=== PATIENT | male | born 1965 | race Caucasian/White ===

== ENCOUNTER 2021-12-28 10:19 | Inpatient (IN) | payer OTHER ==
[~2021-12-28] VITALS: Ht 172.7 cm; Wt 125.6 kg
[~2021-12-28 10:19] MED LIST: ADVIL200 MG PO; ALBUTEROL2.5 MG/3 M INH; COMBIVENT RESPIM4 GM INH; NORCO 5-325 TA1 EACH PO; PREDNISONE20 MG PO
--- NOTE | 2021-12-28 21:01 | EKG ---
[facility] [address] [facility] [place] [address] Signed Normal sinus rhythm Possible Anterior infarct , age undetermined Abnormal ECG When compared with ECG of 16-JUL-2016 12:24, Nonspecific T wave abnormality no longer evident in Lateral leads Confirmed by VENESSA ROPER MD ([id number]) on 12/28/2021 9:00:53 PM Electronically Signed By: VENESSA ROPER MD 12/28/212100 PATIENT NAME: MICHAELPASTOR JAE Electrocardiogram DATE OF : 65 PHYSICIAN: VENESSA ROPER MD REPORT #: [id number] REPORT IS CONFIDENTIAL AND NOT TO BE RELEASED WITHOUT AUTHORIZATION
[2021-12-30] MEDS ORDERED: ALBUTEROL2.5 MG/3 M INH (18:26)
== END 2021-12-30 19:15 | disposition left against medical advice (07) | DRG 189 ==
LOC: ED 10:19 → CCU 15:40
PROVIDERS: ADMIT Internal Medicine; ATTEND Internal Medicine
PROC: 5A09357 Assistance with Respiratory Ventilation, Less than 24 Consecutive Hours, Continuous Positive Airway Pressure (ICD-10-PCS; principal; 2021-12-28)
DX: J96.01 Acute respiratory failure with hypoxia (principal); G93.41 Metabolic encephalopathy; I50.23 Acute on chronic systolic (congestive) heart failure; J44.1 Chronic obstructive pulmonary disease with (acute) exacerbation; I16.1 Hypertensive emergency; N17.9 Acute kidney failure, unspecified; I16.0 Hypertensive urgency; J96.02 Acute respiratory failure with hypercapnia; I11.0 Hypertensive heart disease with heart failure; T43.625A Adverse effect of amphetamines, initial encounter; F12.90 Cannabis use, unspecified, uncomplicated; F17.210 Nicotine dependence, cigarettes, uncomplicated; Z86.73 Personal history of transient ischemic attack (TIA), and cerebral infarction without residual deficits; Z79.899 Other long term (current) drug therapy; Z20.822 Contact with and (suspected) exposure to COVID-19; E66.9 Obesity, unspecified; F19.10 Other psychoactive substance abuse, uncomplicated; G40.909 Epilepsy, unspecified, not intractable, without status epilepticus; Z98.890 Other specified postprocedural states
CPT/HCPCS: 36415; 36600; 71045; 80048; 80053; 82553; 82800; 82803; 83735; 83880; 84484; 85025; 85610; 93005; 93010; 93306; 94640; 94660; 96374; 96375; 99285-25; C9113; C9803; J1650; J1940; J2060; J2405; J2920; J2930; J7030; J7121; U0003

== ENCOUNTER 2022-01-18 13:53 | Emergency (ER) | payer OTHER ==
[~2022-01-18] VITALS: Ht 180.3 cm; Wt 115.0 kg
--- OUTSIDE RECORDS SUMMARY | 2022-01-18 14:01 | XMS ---
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 Jeremias has no Care Guidelines for this patient. [facility] MO.) [facility] NOTE: Visits indicate total known visits. ED/C VISIT TRACKING (12 MO.) [facility] [place] [facility] COMPLAINT: - UNRESPONSIVE 12/28/2021 10:19 [facility] [place] TYPE: Emergency COMPLAINT: - DIFFICULTY BREATHING, SEIZURES INPATIENT VISIT TRACKING (12 MO.) 12/28/2021 15:40 [facility] [place] TYPE: Critical Care COMPLAINT: - ACUTE RESPIRATORY FAILURE W HYPOXEMIA, HYPERCAPNEA DIAGNOSES: - Hypertensive urgency - Hypertensive urgency - Acute on chronic systolic (congestive) heart failure - Hypertensive emergency - Other specified postprocedural states - Acute respiratory failure with hypercapnia - Other psychoactive substance abuse, uncomplicated - Metabolic encephalopathy - Contact with and (suspected) exposure to COVID-19 - Other psychoactive substance abuse, uncomplicated - Epilepsy, unspecified, not intractable, without status epilepticus - Acute respiratory failure with hypercapnia - Adverse effect of amphetamines, initial encounter - Obesity, unspecified - Cannabis use, unspecified, uncomplicated - Personal history of transient ischemic attack (TIA), and cerebral infarction without residual deficits - Acute kidney failure, unspecified - Acute kidney failure, unspecified - Obesity, unspecified - Other specified postprocedural states - Other chcf (current) drug therapy - Chronic obstructive pulmonary disease with (acute) exacerbation - Metabolic encephalopathy - Hypertensive emergency - Epilepsy, unspecified, not intractable, without status epilepticus - Other chcf (current) drug therapy - Adverse effect of amphetamines, initial encounter - Hypertensive heart disease with heart failure - Acute on chronic systolic (congestive) heart failure - Cannabis use, unspecified, uncomplicated - Nicotine dependence, cigarettes, uncomplicated - Personal history of transient ischemic attack (TIA), and cerebral infarction without residual deficits - Chronic obstructive pulmonary disease with (acute) exacerbation - Acute respiratory failure with hypoxia - Contact with and (suspected) exposure to COVID-19 - Nicotine dependence, cigarettes, uncomplicated - Hypertensive heart disease with heart failure [email or web address]
[2022-01-18] MEDS ORDERED: IPRAT-ALBUT 0.5-3 ML INH (17:05)
--- NOTE | 2022-01-20 19:07 | EKG ---
[facility] [address] [facility] [place], [place] [address] Signed Normal sinus rhythm Normal ECG When compared with ECG of 28-DEC-2021 11:20, No significant change was found Confirmed by AYANNA DODGE MD ([id number]) on 01/20/2022 7:07:16 PM Electronically Signed By: AYANNA DODGE MD 01/20/22 1907 PATIENT NAME: MICHAELPASTOR Electrocardiogram DATE OF : 65 PHYSICIAN: AYANNA DODGE MD REPORT #: [id number] REPORT IS CONFIDENTIAL AND NOT TO BE RELEASED WITHOUT AUTHORIZATION
--- NOTE | 2022-01-20 19:07 | EKG ---
[facility] [address] [place], [place] [address] Signed Normal sinus rhythm Prolonged QT Abnormal ECG When compared with ECG of 18-JAN-2022 15:25, (Unconfirmed) No significant change was found Confirmed by AYANNA DODGE MD ([id number]) on 01/20/2022 7:07:19 PM Electronically Signed By: AYANNA DODGE MD 01/20/22 1907 PATIENT NAME: MICHAELPASTOR Electrocardiogram DATE OF : 65 PHYSICIAN: AYANNA DODGE MD REPORT #: [id number] REPORT IS CONFIDENTIAL AND NOT TO BE RELEASED WITHOUT AUTHORIZATION
== END 2022-01-18 18:04 | disposition short-term general hospital (02) ==
LOC: ED 13:53
DX: J96.92 Respiratory failure, unspecified with hypercapnia (principal); J96.91 Respiratory failure, unspecified with hypoxia; R77.8 Other specified abnormalities of plasma proteins; J44.9 Chronic obstructive pulmonary disease, unspecified; I10 Essential (primary) hypertension; F17.200 Nicotine dependence, unspecified, uncomplicated; Z79.51 Long term (current) use of inhaled steroids; Z20.822 Contact with and (suspected) exposure to COVID-19
CPT/HCPCS: 31500; 36415; 36556; 36600; 51702; 70450; 71045; 80053; 81001; 82803; 83605; 83880; 84484; 85025; 85610; 85730; 87088; 93005; 93010; 94002; 99285-25; G0480; J1940; J2250; J2704; J3010; U0003

== ENCOUNTER 2022-05-17 07:33 | Emergency (ER) | payer OTHER ==
[~2022-05-17] VITALS: Ht 180.3 cm; Wt 114.8 kg
--- NOTE | ~2022-05-17 | EKG ---
[facility] [address] [facility] [place], [place] [address] Draft EK completed, results pending confirmation PATIENT NAME: PASTOR RODRIGUEZ Electrocardiogram DATE OF : 65 PHYSICIAN: PRELIMINARY REPORT #: [id number] REPORT IS CONFIDENTIAL AND NOT TO BE RELEASED WITHOUT AUTHORIZATION
[~2022-05-17 07:33] MED LIST changes: +IPRAT-ALBUT 0.5-3 ML INH
[2022-05-17] MEDS ORDERED: ATORVASTATIN CA80 MG PO (08:17)
[2022-05-17] MEDS ORDERED: HYDROCHLOROTH12.5 MG PO (08:17)
[2022-05-17] MEDS ORDERED: LOSARTAN POTASS25 MG PO (08:18)
[2022-05-17] MEDS ORDERED: ADULT ASPIRIN R81 MG PO (08:18)
== END 2022-05-17 14:54 | disposition short-term general hospital (02) ==
LOC: ED 07:33
DX: J96.90 Respiratory failure, unspecified, unspecified whether with hypoxia or hypercapnia (principal); R79.89 Other specified abnormal findings of blood chemistry; J44.9 Chronic obstructive pulmonary disease, unspecified; I11.0 Hypertensive heart disease with heart failure; I50.9 Heart failure, unspecified; F17.200 Nicotine dependence, unspecified, uncomplicated; Z79.899 Other long term (current) drug therapy; Z79.82 Long term (current) use of aspirin; Z20.822 Contact with and (suspected) exposure to COVID-19
CPT/HCPCS: 31500; 36415; 36600; 71045; 71260; 80053; 81001; 82803; 83605; 83735; 83880; 84484; 85025; 87502; 93005; 93010; 94002; 94640; 94660; J0330; J1100; J1940; J2250; J2704; Q9967; U0003

== ENCOUNTER 2022-12-06 15:37 | Inpatient (IN) | payer OTHER ==
[~2022-12-06] VITALS: Ht 180.3 cm; Wt 156.1 kg
[~2022-12-06 15:37] MED LIST changes: +ADULT ASPIRIN R81 MG PO; +ATORVASTATIN CA80 MG PO; +HYDROCHLOROTH12.5 MG PO; +LOSARTAN POTASS25 MG PO
[2022-12-06] MEDS ORDERED: FUROSEMIDE40 MG PO (15:46)
[2022-12-06] MEDS ORDERED: METOLAZONE2.5 MG PO (15:46)
--- NOTE | 2022-12-06 19:15 | NUR ---
PT NEW ADMIT TO ICU FROM ED. PT BROUGHT IN ON ED GURNEY WITH ED RN PRESENT. PT'S RESPIRATIONS ARE LABORED. PT IS SPEAKING IN TWO TO THREE WORD SENTANCES. PT IS TOLERATING BIPAP. PT IS EXPERIENCING TACHYPNEA, LS DIMINISHED BILATERALLY WITH INSPIRATORY AND EXPIRATORY WHEEZES. PT TRANSFERRED TO ICU BED WITHOUT PROBLEM. BASELINE VITALS OBTAINED. PRN NEBULIZER ADMINISTERED. PT WITH ONE IV. ATTEMPTED TO START PIV WITH MULTIPLE RNS. PIV ATTEMPT WITH NO SUCCESS. HOUSE SUP RN NOTIFIED AND AT BEDSIDE ATTEMPTING US GUIDED IV.
--- NOTE | 2022-12-06 21:16 | NUR ---
USGIV PLACED IN RFA. PT TOLERATED WELL. PRIMARY RN IN ROOM FOR CARES.
--- NOTE | 2022-12-06 21:18 | NUR ---
BP 114/69 WITH A MAP OF 83. 40 MG OF FUROSIMIDE ADMINISTERED. PT IS A DIFFICULT IV START. MULTIPLE RNS ATTEMPTED TO ESTABLISH SECOND PIV. US GUIDED IV PLACED IN R. FOREARM. BUMIX GTT STARTED. NITRO GTT OFF. ALARM PARAMETERS SET. FIO2 REDUCED FROM 100% TO 80%. PT TOLERATING BIPAP.
--- NOTE | 2022-12-07 06:32 | NUR ---
PT REMAINS BIPAP DEPENDENT WITH SETTINGS OF AVAPS WITH 80% FIO2, RR OF 18 AND VT 555. PT TOLERATED BIPAP THROUGHOUT THE NIGHT. PRN ATIVAN ADMINISTERED FOR PERIODS OF INCREASED ANXIOUSNESS. PT CONTINUES TO BE LETHARGIC, BUT FOLLOWS COMMANDS. PT STATES HIS WORK OF BREATHING HAS IMPROVED, HOWEVER, PT STILL LIMITED TO THREE TO FIVE WORD SENTANCES AND EXPERIENCES INCREASED DYSPNEA WITH ANY EXHERTION. PT HAS BEEN IN A NSR, NORMOTENSIVE AND A-FEBRILE. NITRO GTT REMAINS OFF. PT CONTINUES TO BE ON BUMEX GTT AT 5 MG/HR. PT NOTED TO HAVE UO OF 1350 THROUGHOUT THE NIGHT. LS TIGHT AND DIMINISHED THROUGHOUT. PT RECEIVED PRN ALBUTERAL NEBULIZERS Q4 HRS WITH IMPROVEMENT IN O2 SATURATIONS. PT REMAINS EDEMATOUS THROUGHOUT. LABS: CREATININE SLIGHTLY IMPROVED TO 2.78 DOWN FROM 3.18. H/H . PT NEGATIVE FOR LEUKOCYSTOSIS. TROPONIN NOTED TO BE 94 AT 1800 HRS YESTERDAY, SLIGHTLY DOWN FROM 95. BNP 3612. PT ORDERED FOR ECHO TODAY.
--- NOTE | 2022-12-07 07:20 | NUR ---
Attempted to see pt, he is sleeping with mask in place. Did not awaken. NOtified was here earlier. I will call for assessment info.
--- NOTE | 2022-12-07 07:30 | NUR ---
REPORT RECIEVED. REMAINS ON BIPAP. MATTHEWS CATH PATENT WITH CLEAR YELLOW URINE NOTED. BUMEX GTT INFUSING AT 0.5 MG/HR. VERY SOMULENT AT THIS TIME. WILL TALK WITH DR. ROPER ABOUT POSSIBLE NEED TO HAVE ABG DRAWN.
--- NOTE | 2022-12-07 07:45 | EKG ---
[facility] [address] [facility] [place] [address] Signed Normal sinus rhythm Low voltage QRS Left posterior fascicular block Septal infarct , age undetermined Cannot rule out Inferior infarct , age undetermined Abnormal ECG When compared with ECG of 17-MAY-2022 07:45, Significant changes have occurred Confirmed by VENESSA ROPER MD ([id number]) on 12/07/2022 7:45:28 AM Electronically Signed By: VENESSA ROPER MD 12/07/22 0745 PATIENT NAME: MICHAELPASTOR ROWE Electrocardiogram DATE OF : 65 PHYSICIAN: VENESSA ROPER MD REPORT #: [id number] REPORT IS CONFIDENTIAL AND NOT TO BE RELEASED WITHOUT AUTHORIZATION
--- NOTE | 2022-12-07 08:00 | NUR ---
ASSESSMENT COMPLETE. BIPAP SETTINGS CHANGED BY RT, CURRENTLY ON 15/04, RR-18. ABGS TO BE DRAWN THIS AM.
--- NOTE | 2022-12-07 09:00 | NUR ---
[facility] CONTACTED FOR MEDICAL RECORDS AT THIS TIME
--- NOTE | 2022-12-07 09:45 | NUR ---
IMAGING AT BEDSIDE AT THIS TIME
--- NOTE | 2022-12-07 09:53 | NUR ---
DR. ROPER AWRE OF ABG RESULTS. ORDERS RECIEVED TO INCREASE RR, THIS DONE BY RT. RR INCREASED TO 24 FROM 18. ECHO BEING DONE AT BEDSIDE. PATIENT CONTINUES TO TWITCH AND JERK.
[2022-12-07] MEDS ORDERED: LOSARTAN POTAS100 MG PO (10:38)
[2022-12-07] MEDS ORDERED: VENTOLIN HFA18 GM INH (10:39)
--- NOTE | 2022-12-07 10:40 | NUR ---
DR. ROPER HERE TO SEE PATIENT. ORDERS RECIEVED TO INTUBATE PATIENT. SUPERVISIOR AWARE, ANSETHESIA TO BE NOTIFIED.
--- NOTE | 2022-12-07 11:00 | NUR ---
Notified by Dr. garcia will be intubated and shipped when placement found.
--- NOTE | 2022-12-07 11:10 | NUR ---
ANESTHESIA HERE TO INTUBATE PATIENT. MANY STAFF IN ROOM TO ASSIST.
--- NOTE | 2022-12-07 11:14 | NUR ---
RAMIRO MITCHELL IN ROOM AT THIS TIME FOR INTUBATION. PT'S NAZIA IN ROOM AT THIS TIME. RT IN ROOM AND PREPARING FOR INTUBATION.
[2022-12-07] MEDS ORDERED: NICOTINE PATCH1 EACH TD (11:18)
--- NOTE | 2022-12-07 11:20 | NUR ---
INTUBATED WITH SIZE 8 ETT. CHEST XRAY DONE.
--- NOTE | 2022-12-07 11:25 | NUR ---
ORAL GASTRIC TUBE PLACED, CXR DONE. PROPOFOL GTT AT 20 MCG/KG/MIN HUNG. WRIST RESTRAINTS ON.
--- NOTE | 2022-12-07 11:30 | NUR ---
SUCTIONED FOR MANY ORAL SECRETIONS AND ETT SUCTIONED FOR LARGE AMOUMT OF CLEAR SPUTUM. REMAINS ON BUMEX GTT AT 0.5MG/HR.
--- NOTE | 2022-12-07 12:00 | NUR ---
Called and spoke with pt's Deborah. Notified pt will be transferred to [facility]. Asked if she could give me information for pts assessment as he is unable to speak with me. She states they live in [place]. Pt uses a concentrator in the home at 4Lper in. He also has a portable concentrator that goes to 5l he uses for appts. He has a walker and a noninvasive bent. They get their DME from [facility]. is upset when I told her about [facility] in [place]. She states it is very difficult for her to get to [place] and would prefer he stay in this area. Discussed pt needs high level of care and the only place available is [facility] at this time. She would like [facility] or [facility]. She states pt needs to not trasport as he is tired and not wanting to continue to be transferred. I asked if she is stating they would like to have comfort care and not to transfer. She is not sure at this time and states she knows he is getting very tired. We then discussed need for she, pt, and pcp to have this discussion. She thinks at this time he would want to cont. to receive treatment. I let pt know about [facility] transport and they have free transport home. She was not aware of this. She also states they have [employer]. states they have attempted disability for several years and it has not been approved. I directed her to see their PCP and ask him to assist them with documentation showing pt cannot work on 4L of 02. Pt awaiting transfer and is intubated.
--- NOTE | 2022-12-07 13:05 | NUR ---
FLIGHT TEAM HERE TO TAKE PATIENT TO [facility], REPORT TO THEM.
--- NOTE | 2022-12-07 13:18 | NUR ---
CONTACTED BY RORY SHANNON THAT PT WAS BEING INTEBATED AND IS IN RM. CONNECTED WITH NAZIA, SHE HAS FEAR THAT PT WILL LEAVE HOSPITAL IN [place] BEFORE HE IS READY "BEAUSE HE KNOWS THAT THEY CAN'T KEEP HIM." IT HAS HAPPENED PREVIOUS. NAZIA NEEDED TO GET BACK TO WORK, TOLD HER WE WILL KEEP HER UPDATED SOON WE KNOW WHERE PT IS BEING TRANSFERRED-SHE ACKNOWLEDGED. HAD PRAYER WITH HER. [facility] WILL CONTACT NAZIA AND UPDATE. PT WILL BE GOING TO [place] [facility]. WILL FOLLOW
--- NOTE | 2022-12-07 14:00 | NUR ---
TO [facility] VIA [place]. REPORT CALLED TO MEREDITH GOMEZ AT [facility].
== END 2022-12-07 13:50 | disposition short-term general hospital (02) | DRG 208 ==
LOC: ED 15:37 → CCU 18:40
PROVIDERS: ADMIT Internal Medicine; ATTEND Internal Medicine
PROC: 0T9B70Z Drainage of Bladder with Drainage Device, Via Natural or Artificial Opening (ICD-10-PCS; principal; 2022-12-06)
PROC: 0BH18EZ Insertion of Endotracheal Airway into Trachea, Via Natural or Artificial Opening Endoscopic (ICD-10-PCS; 2022-12-06)
PROC: 5A1935Z Respiratory Ventilation, Less than 24 Consecutive Hours (ICD-10-PCS; 2022-12-06)
PROC: 5A09357 Assistance with Respiratory Ventilation, Less than 24 Consecutive Hours, Continuous Positive Airway Pressure (ICD-10-PCS; 2022-12-06)
PROC: 4A033R1 Measurement of Arterial Saturation, Peripheral, Percutaneous Approach (ICD-10-PCS; 2022-12-06)
DX: J96.02 Acute respiratory failure with hypercapnia (principal); I50.23 Acute on chronic systolic (congestive) heart failure; N17.9 Acute kidney failure, unspecified; Z20.822 Contact with and (suspected) exposure to COVID-19; I11.0 Hypertensive heart disease with heart failure; F15.10 Other stimulant abuse, uncomplicated; F17.210 Nicotine dependence, cigarettes, uncomplicated; J44.9 Chronic obstructive pulmonary disease, unspecified; Z99.81 Dependence on supplemental oxygen; Z86.73 Personal history of transient ischemic attack (TIA), and cerebral infarction without residual deficits; Z98.890 Other specified postprocedural states; Z79.51 Long term (current) use of inhaled steroids; Z79.82 Long term (current) use of aspirin; Z79.899 Other long term (current) drug therapy
CPT/HCPCS: 00320; 31500; 36415; 36600; 51702; 71045; 80048; 80053; 81001; 82803; 83735; 83880; 84484; 85025; 87502; 93005; 93010; 93306; 94002; 94640; 94660; 99285-25; C9113; J0330; J1650; J1940; J2001; J2060; J2250; J2704; J2920; J3490; U0003

== ENCOUNTER 2023-08-26 14:24 | Emergency (ER) | payer OTHER ==
[~2023-08-26] VITALS: Ht 180.3 cm; Wt 125.0 kg
[~2023-08-26 14:24] MED LIST changes: +FUROSEMIDE40 MG PO; +LOSARTAN POTAS100 MG PO; +METOLAZONE2.5 MG PO; +NICOTINE PATCH1 EACH TD; +VENTOLIN HFA18 GM INH
[2023-08-26 14:58] LABS: BASOPHILS 0.5 % (0-2); HEMATOCRIT 52.1 % (35.0-50.0); HEMOGLOBIN 16.4 g/dL (12.0-18.0); LYMPHOCYTES 13.8 % (24-44); MCH 30.2 (27-36); MCHC 31.4 g/dl (30-36); MCV 96.2 fl (81-99); MONOCYTES 9.5 % (0-12); NEUTROPHILS 73.2 % (39-80); PLATELET COUNT 227 K/uL (140-440); RBC 5.42 M/ul (4.3-5.7); RDW 18.2 (10.5-15.0)
[2023-08-26 15:09] LABS: PH, VENOUS 7.344 (7.31-7.41)
[2023-08-26 15:24] LABS: LACTIC ACID, BLOOD 0.9 mmol/L (0.4-2.0)
[2023-08-26 15:34] LABS: ALBUMIN 3.1 g/dL (3.4-5.0); ALBUMIN/GLOBULIN RATIO 0.79 (1.1-2.4); ANION GAP 1.5 (7-21); BUN/CREATININE RATIO 13.77 (6.0-28.6); CALCIUM 8.2 mg/dL (8.5-10.1); CREATININE, SERUM 1.96 mg/dL (0.70-1.30); POTASSIUM 3.5 mmol/L (3.5-5.1)
[2023-08-26 15:41] LABS: INFLUENZA B NAA NEGATIVE (NEGATIVE); RESPIRATORY SYNCYTIAL VIR NAA NEGATIVE (NEGATIVE)
[2023-08-26 17:11] VITALS: BP 144/78
[2023-08-26 17:59] LABS: BENZODIAZEPINE, URINE NEGATIVE (NEGATIVE); BUPRENORPHINE, URINE NEGATIVE (NEGATIVE); CANNABINOID, URINE POSITIVE (NEGATIVE); COCAINE, URINE NEGATIVE (NEGATIVE); ECSTASY, URINE NEGATIVE (NEGATIVE); FENTANYL, URINE NEGATIVE (NEGATIVE); METHADONE, URINE NEGATIVE (NEGATIVE); OPIATES, URINE NEGATIVE (NEGATIVE); OXYCODONE, URINE NEGATIVE (NEGATIVE); PHENCYCLIDINE, URINE NEGATIVE (NEGATIVE)
[2023-08-26 18:20] LABS: AMPHETAMINES, URINE POSITIVE (NEGATIVE); BARBITURATES, URINE NEGATIVE (NEGATIVE)
--- NOTE | 2023-08-26 22:49 | EKG ---
[facility] [address] [facility] [place] [address] Signed Normal sinus rhythm Possible Left atrial enlargement Rightward axis Low voltage QRS Septal infarct , age undetermined Prolonged QT Abnormal ECG When compared with ECG of 06-DEC-2022 15:54, No significant change was found Confirmed by Jae Benavidez MD () on 08/26/2023 10:48:43 PM Electronically Signed By: JAE BENAVIDEZ MD 08/26/23 2249 PATIENT NAME: PASTOR RODRIGUEZ Electrocardiogram DATE OF : 65 PHYSICIAN: JAE BENAVIDEZ MD REPORT #: [id number] REPORT IS CONFIDENTIAL AND NOT TO BE RELEASED WITHOUT AUTHORIZATION
== END 2023-08-26 17:11 | disposition left against medical advice (07) ==
LOC: ED 14:24
PROVIDERS: Emergency Medicine
DX: I11.0 Hypertensive heart disease with heart failure (principal); I50.9 Heart failure, unspecified; J44.9 Chronic obstructive pulmonary disease, unspecified; R79.89 Other specified abnormal findings of blood chemistry; F15.10 Other stimulant abuse, uncomplicated; F17.200 Nicotine dependence, unspecified, uncomplicated; Z79.899 Other long term (current) drug therapy; Z79.82 Long term (current) use of aspirin; Z20.822 Contact with and (suspected) exposure to COVID-19; Z99.81 Dependence on supplemental oxygen; Z53.29 Procedure and treatment not carried out because of patient's decision for other reasons
CPT/HCPCS: 36415; 71045; 80053; 80307; 82803; 83605; 83880; 84484; 85025; 87040; 87502; 93005; 93010; 96374; 99285-25; 99406; C9803; J1940; U0002